=== PATIENT | female | born 1970 | race Caucasian/White ===

== ENCOUNTER 2018-07-14 16:16 | Emergency (ER) | payer OTHER, MEDICAID ==
[~2018-07-14] VITALS: Ht 154.9 cm; Wt 68.0 kg
[~2018-07-14 16:16] MED LIST: ACET-2708 MT
[2018-07-14 16:31] VITALS: BP 136/93
== END 2018-07-15 | disposition left against medical advice (07) ==
LOC: ER 16:16
DX: M25.561 Pain in right knee (principal); Z53.21 Procedure and treatment not carried out due to patient leaving prior to being seen by health care provider